=== PATIENT | male | born 1990 | race Caucasian/White ===

== ENCOUNTER 2018-07-04 09:56 | Inpatient (IN) | payer OTHER ==
[~2018-07-04] VITALS: Ht 170.2 cm; Wt 101.2 kg
[2018-07-04] MEDS ORDERED: ALBU8.5H8 IH (10:23)
[2018-07-04] MEDS ORDERED: CELE200C PO (10:23)
[2018-07-04] MEDS ORDERED: PREG150C PO (10:23)
[2018-07-04] MEDS ORDERED: ONDA4TAB5 SL (10:23)
[2018-07-04] MEDS ORDERED: BACL20TA PO (10:23)
[2018-07-04] MEDS ORDERED: CLON0.1T PO (10:23)
[2018-07-04] MEDS ORDERED: ARIP10TA17 PO (10:23)
[2018-07-04] MEDS ORDERED: QUET100T PO (10:23)
[2018-07-04 10:46] LABS: BASOPHILS % (AUTO) 0.3 % (0.0-2.0); EOSINOPHILS # (AUTO) 0.1 K/uL (0.0-0.7); EOSINOPHILS % (AUTO) 0.8 % (0.0-7.0); HEMATOCRIT 43.9 % (36.7-47.1); HEMOGLOBIN 15.4 g/dL (12.5-16.3); LYMPHOCYTES # (AUTO) 1.3 K/uL (20.0-40.0); LYMPHOCYTES % (AUTO) 11.9 % (20.5-51.5); MEAN CORPUSCULAR HEMOGLOBIN 30.4 uug (23.8-33.4); MEAN CORPUSCULAR HGB CONC 35 g/dL (32.5-36.3); MEAN CORPUSCULAR VOLUME 86.7 fL (73.0-96.2); MONOCYTES # (AUTO) 0.6 K/uL (2.0-10.0); MONOCYTES % (AUTO) 5.3 % (0.0-11.0); NEUTROPHILS # (AUTO) 8.9 K/uL (1.8-8.9); NEUTROPHILS % (AUTO) 81.7 % (38.5-71.5); PLATELET COUNT (AUTO) 245 K/uL (152-348); RED BLOOD CELL COUNT(AUTO) 5.07 MIL/uL (4.06-5.63); WHITE BLOOD COUNT (AUTO) 10.9 K/uL (3.6-10.2)
[2018-07-04 10:52] LABS: CARBON DIOXIDE 27 mmol/L (21-32); CHLORIDE 102 mmol/L (98-107); CREATININE 0.9 mg/dL (0.6-1.3); GLUCOSE 124 mg/dL (74-106); POTASSIUM 3.4 mmol/L (3.5-5.1); UREA NITROGEN, BLOOD 12 mg/dL (7-18)
[2018-07-04 10:54] LABS: ETHANOL < 3 MG/DL (0-0)
[2018-07-04 10:57] LABS: ALANINE AMINOTRANSFERASE 33 U/L (16-63); ALKALINE PHOSPHATASE 69 U/L (50-136); ASPARTATE AMINOTRANSFERASE 28 U/L (15-37); BILIRUBIN,DIRECT 0.1 mg/dL (0.0-0.2); BILIRUBIN,TOTAL 0.4 mg/dL (0.2-1.0); TOTAL PROTEIN, SERUM 7.7 g/dL (6.4-8.2)
[2018-07-04 10:58] LABS: ACETAMINOPHEN < 2.0 ug/mL (10-30)
[2018-07-04 11:08] LABS: THYROID STIMULATING HORMONE 1.262 mIU/mL (0.358-3.740)
[2018-07-04 11:24] LABS: *BILIRUBIN,URIN NEGATIVE (NEGATIVE); *BLOOD, URINE Trace-intact (NEGATIVE); *CLARITY,URINE CLEAR (CLEAR); *COLOR,URINE YELLOW (YELLOW); *KETONES,URINE NEGATIVE (NEGATIVE); *UROBILINOGEN,URINE 0.2 E.U./dl (NORMAL); LEUKOCYTE ESTERASE ,URINE NEGATIVE (NEGATIVE); NITRITE, URINE NEGATIVE (NEGATIVE); PH,URINE 6.5 (5.0-8.0); UGLUCOSE NEGATIVE (NEGATIVE)
[2018-07-04 11:31] LABS: BACTERIA,URINE FEW /HPF (NONE SEEN); MUCUS,URINE FEW /LPF (0-FEW); RBC,URINE NONE SEEN /HPF (0-3); SQUAMOUS EPITHELIAL CELL,UR FEW /HPF (NONE SEEN); WBC,URINE 0-3 /HPF (0-3)
[2018-07-04 11:38] LABS: *AMPHETAMINE, URINE NEGATIVE (NEGATIVE); *BARBITURATE, URINE NEGATIVE (NEGATIVE); *CANNABINOID, URINE NEGATIVE (NEGATIVE); *COCCAINE, URINE NEGATIVE (NEGATIVE); *OPIATE, URINE NEGATIVE (NEGATIVE); *PHENCYCLIDINE SCREEN,URINE NEGATIVE (NEGATIVE)
--- NOTE | 2018-07-04 11:40 | NUR ---
Patient is resting comfortably in bed with eyes closed, easily arousable by voice, still sleepy and can only recall his name, respiration:easy.
[2018-07-04] MEDS ORDERED: ONDANSETRON 4 MG/2 ML VIAL ONE ×2 (13:53→19:04)
[2018-07-04] MEDS ORDERED: ONDANSETRON IV *ER 4 MG/2 ML VIAL IV ONE ×2 (14:00→19:00)
--- NOTE | 2018-07-04 14:37 | NUR ---
Patient ambulated to bathroom with steady gait, for disposition. MD notified.
--- NOTE | 2018-07-04 18:24 | NUR ---
Patient is for admission per Dr Lai. Dr Mark Arteaga accepted this patient, pending assigned bed & nurse assigned at this time.
--- NOTE | 2018-07-04 20:02 | NUR ---
Patient discharged to home in stable conditon. Written and verbal after care instructions given. Patient verbalizes understanding of instructions.
[2018-07-04 20:24] VITALS: BP 155/97
[2018-07-04] MEDS ORDERED: Z GUARD REMEDY PASTE 57 GM TUBE TOP PRN (20:45)
[2018-07-04] MEDS ORDERED: ACETAMINOPHEN 325 MG TABLET PO PRN (20:45)
[2018-07-04] MEDS: ONDANSETRON 4 MG/2 ML VIAL IV PRN (21:58)
[2018-07-04] MEDS: IV NS 1000 ML 1,000 ML IV PRN (21:58)
--- NOTE | 2018-07-04 22:00 | NUR ---
NEW PATIENT, ADMITTED FOR AMS, PATIENT IS AAOX2 WITH CONFUSION. DENIES PAIN OR ANY DISTRESS ON ASSESSMENT. 1:1 SITTER FOR SAFETY AT BEDSIDE.
[2018-07-05 04:00] VITALS: BP 119/73
[2018-07-05] MEDS: ONDANSETRON 4 MG/2 ML VIAL IV PRN (05:09)
[2018-07-05 06:36] LABS: EOSINOPHILS % (AUTO) 0.1 % (0.0-7.0); LYMPHOCYTES # (AUTO) 1.1 K/uL (20.0-40.0); LYMPHOCYTES % (AUTO) 14.1 % (20.5-51.5); MONOCYTES # (AUTO) 0.5 K/uL (2.0-10.0)
--- NOTE | 2018-07-05 06:49 | NUR ---
PATIENT SLEPT WELL ON THIS SHIFT, NO C/O PAIN OR ANY DISTRESS AT PRESENT. CONTINUES TO HAVE PERIODS OF CONFUSION BUT ABLE TO REDIRECT. NO FURTHER CHANGES AT THIS TIME
[2018-07-05 06:51] LABS: CREATININE 0.8 mg/dL (0.6-1.3); MAGNESIUM 1.9 mg/dL (1.8-2.4); POTASSIUM 3.6 mmol/L (3.5-5.1)
[2018-07-05 06:59] LABS: BASOPHILS % (AUTO) 0.3 % (0.0-2.0); MEAN CORPUSCULAR HEMOGLOBIN 30.5 uug (23.8-33.4); MEAN CORPUSCULAR HGB CONC 35 g/dL (32.5-36.3); MEAN CORPUSCULAR VOLUME 87.9 fL (73.0-96.2); MONOCYTES % (AUTO) 5.8 % (0.0-11.0); NEUTROPHILS # (AUTO) 6.4 K/uL (1.8-8.9); NEUTROPHILS % (AUTO) 79.7 % (38.5-71.5); PLATELET COUNT (AUTO) 230 K/uL (152-348); RED BLOOD CELL COUNT(AUTO) 4.32 MIL/uL (4.06-5.63)
[2018-07-05 07:00] LABS: WHITE BLOOD COUNT (AUTO) 8.1 K/uL (3.6-10.2)
[2018-07-05 07:01] LABS: HEMOGLOBIN 13.2 g/dL (12.5-16.3)
[2018-07-05 07:17] LABS: THYROID STIMULATING HORMONE 0.653 mIU/mL (0.358-3.740)
[2018-07-05] MEDS: IV NS 1000 ML 1,000 ML IV PRN (09:41)
[2018-07-05 11:57] VITALS: BP 135/80
--- NOTE | 2018-07-05 16:21 | NUR ---
With discharge order, arrangements made with [place] 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 Saline lock removed. DC instruction given to patient, verbalized understanding. Discharge per wheelchair in fair condition, not in distress, with home medications given back as okayed by Robi.
== END 2018-07-05 16:25 | disposition other institution (70) | DRG 917 ==
LOC: ER 09:56 → MED 19:25
PROVIDERS: ADMIT Nurse Practitioner Acute Care; ATTEND Registered Nurse
DX: T65.91XA Toxic effect of unspecified substance, accidental (unintentional), initial encounter (principal); G92 Toxic encephalopathy; E87.2 Acidosis; Q78.0 Osteogenesis imperfecta; F11.20 Opioid dependence, uncomplicated; F13.20 Sedative, hypnotic or anxiolytic dependence, uncomplicated; Y92.099 Unspecified place in other non-institutional residence as the place of occurrence of the external cause; E86.0 Dehydration; E78.5 Hyperlipidemia, unspecified; E66.9 Obesity, unspecified; Z68.34 Body mass index [BMI] 34.0-34.9, adult; G89.4 Chronic pain syndrome; D72.829 Elevated white blood cell count, unspecified; F17.210 Nicotine dependence, cigarettes, uncomplicated
CPT/HCPCS: 36415; 70030-TC; 70450; 71045; 72125; 80307; 83605; 83690; 83735; 84100; 84443; 85025; 85730; 87040; 87086; 93005; A4663; C1758; G0378; G0480; G0480-TC; J2405; J7030

== ENCOUNTER 2018-07-23 21:27 | Emergency (ER) | payer OTHER ==
[~2018-07-23] VITALS: Ht 172.7 cm; Wt 88.5 kg
[~2018-07-23 21:27] MED LIST: ALBU8.5H8 IH; ARIP10TA17 PO; CELE200C PO; CLON0.1T PO; ONDA4TAB5 SL; PREG150C PO
--- NOTE | 2018-07-23 21:56 | NUR ---
XRAY AT BEDSIDE.
[2018-07-23] MEDS ORDERED: IBUPROFEN 800 MG TABLET PO ONE (22:00)
[2018-07-23] MEDS ORDERED: IBUPROFEN 800 MG TABLET ONE (22:04)
[2018-07-23] MEDS ORDERED: HYDROCODONE/APAP 5-325MG TABLET PO ONE (22:30)
[2018-07-23] MEDS ORDERED: HYDROCODONE/APAP 5-325MG TABLET ONE (22:33)
--- NOTE | 2018-07-23 23:00 | NUR ---
Patient discharged to home in stable conditon. Written and verbal after care instructions given. Patient verbalizes understanding of instructions. Pt ambulated out of ER via crutches. Pt has post. short leg splint applied on left ankle. Pt has friend to drive him home.
[2018-07-23 23:02] VITALS: BP 147/92
== END 2018-07-23 23:02 | disposition home or self-care (01) ==
LOC: ER 21:27
DX: S82.832A Other fracture of upper and lower end of left fibula, initial encounter for closed fracture (principal); Z79.899 Other long term (current) drug therapy; X58.XXXA Exposure to other specified factors, initial encounter; Y93.67 Activity, basketball; Y92.89 Other specified places as the place of occurrence of the external cause; Y99.8 Other external cause status
CPT/HCPCS: 73610; A4663